=== PATIENT | female | born 2005 | race Caucasian/White ===

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

== ENCOUNTER → 2025-02-12 | Outpatient (REF) | payer BC ==
[2025-02-12 17:08] LABS: PLATELET COUNT, AUTOMATED 283 10^3/uL (150-450)
[2025-02-12 17:38] LABS: IRON (FE) 170.0 UG/DL (50-170); PERCENT SATURATION 47.5 % (13.2-45.0)
== END ==
LOC: M SFHCADAM 14:06
PROVIDERS: ATTEND Physician Assistant Medical
DX: Z13.0 Encounter for screening for diseases of the blood and blood-forming organs and certain disorders involving the immune mechanism (principal)